=== PATIENT | female | born 1995 | race Caucasian/White ===

== ENCOUNTER 2017-12-04 17:50 | Emergency (ER) | payer BC ==
--- NOTE | 2017-12-04 18:33 | ER Document Report ---
HPI - HPI Pain Level: 5 Context: 22-year-old nondiabetic felt something squishy in the bottom of the ocean and something bit her left plantar great toe causing severe pain. Tetanus is current. Associated Symptoms: None Exacerbated by: Denies Relieved by: Denies Similar symptoms previously: No Recently seen / treated by doctor: No - ROS ROS below otherwise negative: Yes Systems Reviewed and Negative: Yes All other systems reviewed and negative - REPRODUCTIVE Reproductive: DENIES: : Past Medical History - General Information source: Patient - Social History Smoking Status: Unknown if Ever Smoked Frequency of alcohol use: None Drug Abuse: None Lives with: Family Family History: Hypertension Musculoskeletal Medical History: Reports Hx Arthritis, Reports Hx Musculoskeletal Deformity, Reports Hx Musculoskeletal Trauma Traumatic Medical History: Reports: Hx Fractures Past Surgical History: Reports: Hx Myringotomy - Immunizations Hx Diphtheria, Pertussis, Tetanus Vaccination: - unknown Vertical Provider Document - CONSTITUTIONAL Agree With Documented VS: Yes Exam Limitations: No Limitations - INFECTION CONTROL TRAVEL OUTSIDE OF THE [place] IN LAST 30 DAYS: No - MUSCULOSKELETAL/EXTREMETIES Musculoskeletal/Extremeties: MAEW, FROM, Tender - 3 mm superficial puncture base of plantar left great toe - NEURO Level of Consciousness: Alert Motor/Sensory: No Motor Deficit, No Sensory Deficit Course - Re-evaluation Re-evalutation: 12/04/17 19:37 X-ray is negative, warm soapy water cleansing and irrigation, bacitracin, sterile gauze and Coban dressing - Vital Signs Vital signs: Temp Pulse Resp BP Pulse Ox 98.5 F 114 H 22 H 165/107 H 97 12/04/17 17:56 12/04/17 17:56 12/04/17 17:56 12/04/17 17:56 12/04/17 17:56 Discharge - Discharge Clinical Impression: Left great toe bite in the ocean Condition: Good Disposition: HOME, SELF-CARE Instructions: Acetaminophen, Animal Bites ([facility]), Ibuprofen (General) ([facility]) Additional Instructions: Soak her foot in warm soapy water twice a day, bacitracin, sterile dressing Keep the wound clean Watch for signs and symptoms of infection which would be red streak pus increased pain or swelling Tylenol for pain Motrin for pain and inflammation Return to the emergency room any concerns Prescriptions: Ibuprofen [Motrin 600 mg Tablet] 600 mg PO Q8HP PRN #30 tablet PRN Reason: Referrals: NATA SCOTT, RAT BREEDER [NURSE PRACTITIONER] - Follow up as needed
[2017-12-04] MEDS ORDERED: IBUPROFEN 600 MG TABLET PO ONE (18:37)
[2017-12-04] MEDS ORDERED: ACETAMINOPHEN 325 MG TABLET PO ONE (18:37)
--- NOTE | 2017-12-04 19:36 | RADIOLOGY REPORT (SQ) ---
EXAM DESCRIPTION: TOE LEFT COMPLETED DATE/TIME: 12/04/2017 7:25 pm REASON FOR STUDY: gt toe COMPARISON: None. NUMBER OF VIEWS: Three views. TECHNIQUE: AP, lateral, and oblique images acquired of the left first toe. LIMITATIONS: None. FINDINGS: MINERALIZATION: Normal. BONES: No acute fracture or dislocation. No worrisome bone lesions. JOINTS: No effusions. SOFT TISSUES: No significant soft tissue swelling. No radiopaque foreign body. OTHER: No other significant finding. IMPRESSION: No fracture or radiopaque foreign body. COMMENT: SITE OF TRAUMA/COMPLAINT MARKED/STAMP COMPLETED: NO. TECHNICAL DOCUMENTATION: JOB ID: [id number] [id number] 2010 [employer]- All Rights Reserved Reading location - IP/workstation name: [employer]
[2017-12-04 19:53] VITALS: BP 135/86
== END 2017-12-04 19:51 | disposition home or self-care (01) ==
LOC: ER 17:50
DX: S90.472A Other superficial bite of left great toe, initial encounter (principal); X58.XXXA Exposure to other specified factors, initial encounter
CPT/HCPCS: 99283